=== PATIENT | male | born 2000 | race Caucasian/White ===

== ENCOUNTER 2025-09-15 12:25 | Emergency (ER) | payer OTHER ==
[~2025-09-15] VITALS: Ht 160 cm; Wt 65.8 kg
[2025-09-15] MEDS ORDERED: metroNIDAZOLE 500 MG TAB PO ONE (12:55)
== END 2025-09-15 12:59 | disposition home or self-care (01) ==
LOC: ED 12:25
DX: A59.9 Trichomoniasis, unspecified (principal)